=== PATIENT | female | born 1940 | race Caucasian/White ===

== ENCOUNTER 2017-06-02 10:59 | Emergency (ER) | payer MEDICARE, BC ==
[~2017-06-02] VITALS: Wt 88.0 kg
[2017-06-02 12:47] LABS: ADD UMIC YES; UR ASCORBIC ACID NEGATIVE (NEGATIVE); UR BACTERIA FEW /HPF (NONE SEEN); UR BILIRUBIN (Dip) NEGATIVE (NEGATIVE); UR BLOOD (Dip) 1+ mg/dL (NEGATIVE); UR CLARITY CLOUDY (CLEAR); UR COLOR YELLOW (YELLOW); UR GLUCOSE (Dip) NEGATIVE (NEGATIVE); UR KETONES (Dip) NEGATIVE (NEGATIVE); UR LEUKOCYTE ESTERASE (Dip) 2+ Leu/ul (NEGATIVE); UR NITRITE (Dip) NEGATIVE (NEGATIVE); UR RBC 3 /HPF (0-5); UR SPECIFIC GRAVITY (Dip) 1.015 (1.003-1.030); UR SQUAMOUS EPITHELIAL CELL MODERATE /HPF (FEW); UR TOTAL PROTEIN (Dip) NEGATIVE (NEGATIVE); UR UROBILINOGEN (Dip) NEGATIVE (NEGATIVE)
[2017-06-02] MEDS ORDERED: CIPROFLOXACIN 500 MG TAB PO STA (12:53)
[2017-06-02] MEDS ORDERED: CIPR500T4 PO (13:11)
[2017-06-02] MEDS ORDERED: KET2CR15 TOP (13:11)
--- NOTE | 2017-06-02 15:00 | ERD ---
ER Documentation Chief Complaint Date/Time DATE: 06/02/17 TIME: 14:57 Chief Complaint VAGINAL AREA ITCHING AND REDNESS FOR A WEEK. NO RELEIF WITH OTC MEDS HPI This is a 77-year-old female with history of hypertension presenting to the emergency department complaining of itchiness and redness in her groin area bilaterally for the past week. Patient denies fevers, denies any vaginal itchiness or redness, denies dysuria, vaginal discharge. Patient rates his at 5 out of 10. Patient states that she tried Tucks and Betadine without any relief. ROS All systems reviewed and are negative except as per history of present illness. Medications Home Meds Active Scripts Ketoconazole* (Ketoconazole* 2% Cream (15gm)) 1 Applic Cr, 1 APPLIC TOP BID for 10 Days, TUB Prov:YOU DANIEL PA-C 06/02/17 Ciprofloxacin Hcl* (Ciprofloxacin Hcl*) 500 Mg Tablet, 500 MG PO BID for 5 Days , TAB Prov:YOU DANIEL PA-C 06/02/17 Allergies Allergies: Coded Allergies: Sulfa (Sulfonamide Antibiotics) (Verified Allergy, Unknown, 06/02/17) PMhx/Soc History of Surgery: Yes (HYSTERECTOMY , HEMICOLECTOMY, CHOLECYSTECTOMY ) Anesthesia Reaction: No Hx Neurological Disorder: No Hx Respiratory Disorders: No Hx Cardiac Disorders: Yes (HTN) Hx Miscellaneous Medical Probl: Yes (GERD ) Hx Alcohol Use: No Hx Substance Use: No Hx Tobacco Use: No Smoking Status: Never smoker Physical Exam Vitals Vital Signs Date Time Temp Pulse Resp B/P Pulse Ox O2 Delivery O2 Flow Rate FiO2 06/02/17 11:04 98.6 77 20 152/70 98 Physical Exam GENERAL: well-developed/well-nourished, in no apparent distress, non-toxic appearing HENT: NC/AT EYES: Conjunctiva normal NECK: Supple, no lymphadenopathy PULM: CTA bilaterally, no rales, rhonchi, or wheezing heard CV: Normal S1S2, RRR, good capillary refill GI: Soft, non-distended, tender to palpation in Normal bowel sounds, no masses or organomegaly felt on exam No gross peritonitis, no bruits Negative Rosvings, negative Montgomery, negative McBurney's point, negative CVAT : PELVIC EXAM: Patient had erythema in the folds of her groin with satellite lesions Normal cervix, no discharge BIMANUAL EXAM: non-tender, negative chandelier sign BACK: No midline tenderness, no masses EXT: No clubbing, cyanosis, or edema NEURO: Alert and Orientated, gait normal SKIN: Read above PSYCH: Normal mood and mentation Results 24 hrs Laboratory Tests Test 06/02/17 12:20 Urine Color YELLOW Urine Clarity CLOUDY Urine pH 5.0 Urine Specific Diagonal 1.015 Urine Ketones NEGATIVEmg/dL Urine Nitrite NEGATIVEmg/dL Urine Bilirubin NEGATIVEmg/dL Urine Urobilinogen NEGATIVEmg/dL Urine Leukocyte Esterase 2+Lesley/ul Urine Microscopic RBC 3/HPF Urine Microscopic WBC 15/HPF Urine Squamous Epithelial Cells MODERATE/HPF Urine Bacteria FEW/HPF Urine Hemoglobin 1+mg/dL Urine Glucose NEGATIVEmg/dL Urine Total Protein NEGATIVEmg/dl Current Medications Medications (Trade) Dose Ordered Sig/Nancy Route PRN Reason Start Time Stop Time Status Last Admin Dose Admin Ciprofloxacin (Cipro) 500 mg ONCE STAT PO 06/02/17 12:53 06/02/17 12:59 DC 06/02/17 13:17 Procedures/MDM This is a 77-year-old female presenting to the emergency department complaining of itchiness and red erythema for the past week in her groin area which is most consistent with tinea corporis. Pelvic exam was done, did not show any evidence of vaginal candidiasis. Low suspicion for PID. Urinalysis was positive for a urinary tract infection, she had ++2 leukocyte esterase. A urine culture was sent out. Prescription for Cipro and ketoconazole cream was provided. Discussed to follow with her primary care physician. Discussed return to the ER for any worsening sinuses. She understands and agrees with the Departure Diagnosis: Primary Impression: UTI (urinary tract infection) Additional Impression: Tinea corporis Condition: Stable Patient Instructions: Understanding Urinary Tract Infections (UTIs), Tinea Corporis Referrals: ELINA LANGSTON MD Additional Instructions: FOLLOW UP WITH YOUR PRIMARY CARE PHYSICIAN TOMORROW.Return to this facility if you are not improving as expected. Take all medicines as directed. Return to this facility if you are not improving as expected. YOU DANIEL PA-C Jun 02, 2017 15:00
== END 2017-06-02 13:15 | disposition home or self-care (01) ==
LOC: FTE 10:59
DX: N39.0 Urinary tract infection, site not specified (principal); B35.4 Tinea corporis; I10 Essential (primary) hypertension
CPT/HCPCS: 81001; 87086; 99284